=== PATIENT | male | born 1970 ===

== ENCOUNTER 2024-03-29 04:07 | Day surgery (SDC) | payer OTHER ==
[2024-03-25 11:09] VITALS: BMI 35.5
[2024-03-29 07:02] VITALS: RESP 18
[2024-03-29] MEDS ORDERED: DEXTROSE 5%-0.45% SALINE 1,000 ML IV SCH (08:45)
[2024-03-29] MEDS ORDERED: IBUPROFEN 800 MG/8 ML IJ IVPB SCH (08:45)
[2024-03-29] MEDS ORDERED: FENTANYL CITRATE/PF 50 MCG/ML VIAL ONE ×2 (08:56→09:35)
[2024-03-29] MEDS ORDERED: PROPOFOL 20 ML ONE ×3 (09:08→09:17)
[2024-03-29] MEDS ORDERED: LIDOCAINE HCL 2% JELLY 11 ML TP ONE (09:09)
[2024-03-29] MEDS: LIDOCAINE HCL 2% JELLY (30 ML/TUBE) TP ONE (09:10)
[2024-03-29] MEDS ORDERED: oxyCODONE HCL 5 MG TABLET ONE (10:30)
[2024-03-29] MEDS: oxyCODONE HCL 5 MG TABLET PO ONE (10:37)
[2024-03-29 12:16] VITALS: BP 134/80; PULSE 76; TEMP 98.5
== END 2024-03-29 14:21 | disposition home or self-care (01) ==
LOC: JASU-SURG 04:07
PROVIDERS: ATTEND Urology
PROC: 0T7D8DZ Dilation of Urethra with Intraluminal Device, Via Natural or Artificial Opening Endoscopic (ICD-10-PCS; principal; 2024-03-29 08:30)
DX: N40.1 Benign prostatic hyperplasia with lower urinary tract symptoms (principal); R39.12 Poor urinary stream; R33.8 Other retention of urine
CPT/HCPCS: C9740; L8699